=== PATIENT | male | born 1960 | race Caucasian/White ===

== ENCOUNTER 2021-03-06 11:46 | Inpatient (IN) | payer OTHER ==
[2021-03-06] MEDS ORDERED: LABETALOL 5 MG/ML VIAL MDV IVP STA (12:01)
[2021-03-06] MEDS ORDERED: LABETALOL 200 MG in SODIUM CHLORIDE 0.9% 160 ML IV ONE (12:02)
[2021-03-06] MEDS ORDERED: NALOXONE 0.4 MG/ML 1 ML VIAL IV PRN (12:28)
--- NOTE | 2021-03-06 12:28 | ED ---
General Adult HPI - General Chief complaint: Chest Pain Stated complaint: aneurysm Time Seen by Provider: 03/06/21 11:59 Source: patient, EMS Mode of arrival: EMS Limitations: no limitations - History of Present Illness Initial comments: Dictation was produced using [employer] dictation software. please excuse any grammatical, word or spelling errors. Chief Complaint: 60-year-old male sent from [facility] for descending aortic dissection History of Present Illness: 60-year-old male he initially presented to [facility] emergency department for abdominal pain. Patient had CT imaging and labs and was initially discharged. Patient was discharged at approximately 1 AM. He went home and will got a call at 7 AM this morning told to come back to the emergency room. Patient CT was reluctant that and there was suspicion of a small area of acute aortic dissection seen at the level of L3-L4. Patient received some labetalol prior to coming to our emergency room. Patient invited bedside has mild pain however he does appear to be comfortable. Patient states that he drinks alcohol regularly. No nausea vomiting no numbness and paresthesias to the arms or legs. The ROS documented in this emergency department record has been reviewed and confirmed by me. Those systems with pertinent positive or negative responses have been documented in the HPI. All other systems are other negative and/or noncontributory. PHYSICAL EXAM: General Impression: Alert and oriented x3, not in acute distress HEENT: Normocephalic atraumatic, extra-ocular movements intact, pupils equal and reactive to light bilaterally, mucous membranes moist. Cardiovascular: Heart regular rate and rhythm Chest: Able to complete full sentences, no retractions, no tachypnea Abdomen: abdomen soft, non-tender, non-distended, no organomegaly Musculoskeletal: Pulses present and equal in all extremities, no peripheral edema Motor: no focal deficits noted Neurological: CN II-XII grossly intact, no focal motor or sensory deficits noted Skin: Intact with no visualized rashes Psych: Normal affect and mood ED course: 60-year-old well-appearing male presents to the emergency department for acute descending aortic dissection. There is a small area measured 6 mm at the L3 to L4 level. Case was discussed prior to patient's arrival with basilar surgery who was agreeable with patient coming to our emergency room. All signs upon arrival shows blood pressure 150/95, heart rate of 71, rest of vital signs within acceptable limits. Patient started on labetalol infusion. Patient be admitted to ICU. Case discussed with Dr. Fontanez was went except patient's care. Patient be admitted to [facility]. EKG interpretation: Ventricular rate 68, normal sinus rhythm,. 170, QRS 100, QTC 446. No NM prolongation, no QTC prolongation, no ST or T-wave changes noted. Overall, this EKG is unremarkable - Related Data Home Medications Medication Instructions Recorded Confirmed No Known Home Medications 03/06/21 03/06/21 Allergies Allergy/AdvReac Type Severity Reaction Status Date / Time No Known Allergies Allergy Verified 03/06/21 12:24 Review of Systems ROS Statement: Those systems with pertinent positive or pertinent negative responses have been documented in the HPI. ROS Other: All systems not noted in ROS Statement are negative. Past Medical History Past Medical History: No Reported History History of Any Multi-Drug Resistant Organisms: None Reported Past Surgical History: Orthopedic Surgery Past Psychological History: No Psychological Hx Reported Smoking Status: Current every day smoker Past Alcohol Use History: Occasional Past Drug Use History: None Reported General Exam Limitations: no limitations Course Vital Signs 03/06/21 03/06/21 03/06/21 11:50 12:38 12:47 Temperature 98.8 F Pulse Rate 71 78 Respiratory 20 18 16 Rate Blood Pressure 150/95 149/100 137/107 O2 Sat by Pulse 96 97 95 Oximetry Critical Care Time Critical Care Time: Yes Total Critical Care Time: 33 Disposition Clinical Impression: Aortic dissection Disposition: ADMITTED IP TO THIS [facility] Condition: Critical Referrals: None,Stated [Primary Care Provider] - 1-2 days
[2021-03-06] MEDS ORDERED: SODIUM CHLORIDE 0.9% 1,000 ML IV SCH (12:30)
[2021-03-06 14:19] LABS: Basophils # (A) 0.1 k/uL (0-0.2); Basophils % (A) 1 %; Eosinophils # (A) 0.2 k/uL (0-0.7); Eosinophils % (A) 2 %; HCT 38.4 % (39.0-53.0); HGB 13.2 gm/dL (13.0-17.5); Lymphocytes # (A) 3.2 k/uL (1.0-4.8); Lymphocytes % (A) 30 %; MCH 30.3 pg (25.0-35.0); MCHC 34.5 g/dL (31.0-37.0); MCV 87.7 fL (80.0-100.0); Mean Platelet Volume 6.7; Monocytes # (A) 0.5 k/uL (0-1.0); Monocytes % (A) 5 %; Neutrophils # (A) 6.7 k/uL (1.3-7.7); Neutrophils % (A) 62 %; Platelet Count 276 k/uL (150-450); RBC 4.37 m/uL (4.30-5.90); RDW 12.9 % (11.5-15.5); WBC 10.9 k/uL (3.8-10.6)
[2021-03-06 14:31] LABS: ALT 26 U/L (4-49); AST 29 U/L (17-59); African American GFR (CKD) >90 (>60 ml/min/1.73 sqM); Albumin 3.4 g/dL (3.5-5.0); Alkaline Phosphatase 62 U/L (38-126); Amylase 40 U/L (30-110); Anion Gap 8 mmol/L; Blood Urea Nitrogen 15 mg/dL (9-20); Calcium 8.2 mg/dL (8.4-10.2); Carbon Dioxide 29 mmol/L (22-30); Chloride 102 mmol/L (98-107); Glucose 126 mg/dL (74-99); Lipase 83 U/L (23-300); Non-African American GFR(CKD) >90 (>60 ml/min/1.73 sqM); Potassium 3.2 mmol/L (3.5-5.1); Sodium 139 mmol/L (137-145); Total Bilirubin 1.2 mg/dL (0.2-1.3); Total Protein 5.9 g/dL (6.3-8.2)
[2021-03-06 14:35] LABS: INR 1.1 (<1.2); Prothrombin Time 11.3 sec (9.0-12.0)
[2021-03-06] MEDS ORDERED: LORazepam 2 MG/ML INJ IV PRN ×3 (14:46)
[2021-03-06] MEDS ORDERED: THIAMINE 100 MG/ML 2 ML VIAL IM STA (14:46)
--- NOTE | 2021-03-06 14:51 | P.HPIM ---
History of Present Illness H&P Date: 03/06/21 This is a 60-year-old male with no significant past medical history who presented to an outside emergency room with worsening epigastric discomfort, nausea, and vomiting. Patient was evaluated and was found to be in hypertensive urgency. The computed tomography scan of the abdomen and pelvis showed evidence of a aortic dissection at the level of L3-L4. Patient was transferred to our hospital for vascular surgery evaluation. He is hemodynamically stable. Blood pressure was elevated on presentation and patient was started on IV labetalol drip and blood pressure better controlled at this time. Patient is having normal bowel movement. He reported that he drinks 2 fifth of liquor daily. He also smokes one pack of cigarettes per day. Patient denies any underlying medical problems. He did not see a PCP in a long time. He does not take any prescription medications at home. Review of Systems Review of system: 14 points review of systems were obtained and were negative except to what were mentioned in the HPI. Past Medical History Past Medical History: No Reported History History of Any Multi-Drug Resistant Organisms: None Reported Past Surgical History: Orthopedic Surgery Past Psychological History: No Psychological Hx Reported Smoking Status: Current every day smoker Past Alcohol Use History: Occasional Past Drug Use History: None Reported Medications and Allergies Home Medications Medication Instructions Recorded Confirmed Type No Known Home Medications 03/06/21 03/06/21 History Allergies Allergy/AdvReac Type Severity Reaction Status Date / Time No Known Allergies Allergy Verified 03/06/21 12:24 Physical Exam Vitals: Vital Signs Temp Pulse Resp BP Pulse Ox 03/06/21 14:00 73 22 136/89 88 L 03/06/21 13:30 78 28 H 148/90 93 L 03/06/21 13:26 130 H 17 03/06/21 13:01 97.7 F 71 16 133/87 94 L 03/06/21 12:47 16 137/107 95 03/06/21 12:38 78 18 149/100 97 03/06/21 11:50 98.8 F 71 20 150/95 96 Intake and Output 03/05/21 03/06/21 03/06/21 22:59 06:59 14:59 Intake Total 10 Balance 10 Intake: IV 10 0.9 10 Other: Weight 83.915 kg General: The patient is awake and alert, in no distress Eye: there is normal conjunctiva bilaterally. Neck: The neck is supple, there is no JVD. Cardiovascular: Normal S1-S2, no S3-S4, no murmurs. Respiratory: Lungs clear to auscultation bilaterally Gastrointestinal: Abdomen is soft, nontender Musculoskeletal: There is no pedal edema. Neurological:. Speech is normal. Skin: Skin is warm and dry Results CBC & Chem 7: 03/06/21 14:10 03/06/21 14:10 Labs: Abnormal Lab Results - Last 24 Hours (Table) 03/06/21 03/06/21 Range/Units 14:10 14:10 WBC 10.9 H (3.8-10.6) k/uL Hct 38.4 L (39.0-53.0) % Potassium 3.2 L (3.5-5.1) mmol/L Glucose 126 H (74-99) mg/dL Calcium 8.2 L (8.4-10.2) mg/dL Total Protein 5.9 L (6.3-8.2) g/dL Albumin 3.4 L (3.5-5.0) g/dL Assessment and Plan Assessment: 1. Hypertensive urgency, started on IV labetalol drip. Blood pressure improved. Transition to oral medications tomorrow. 2. Questionable descending aortic dissection at L3-L4 levels. Awaiting vascular surgery evaluation 3. History of heavy alcohol abuse, counseled extensively to quit. IV fluid hydration and vitamins ordered. Ativan as needed for withdrawal 4. Tobacco abuse, counseled extensively to quit Today, I reviewed his medication list and lab work results. Continue ICU care. Repeat lab work in the morning. Appreciate business solutions consultant's recommendations.
--- NOTE | 2021-03-06 14:53 | P.GSCN ---
<Inessa Horowitz - Last Filed: 03/06/21 14:46> History of Present Illness Consult date: 03/06/21 Reason for Consult: Abdominal aortic dissection History of present illness: This 60-year-old male who presented to the emergency department as a transfer from an outside facility. He was initially seen at [facility] yesterday evening for abdominal pain and chest discomfort with a possible 5 mm abdominal aortic dissection noted on his computed tomography scan. He has a past medical history significant for hypertension, alcohol abuse, and tobacco abuse. He does not follow with a PCP and is not on any antihypertensives. He states he had abdominal pain all during the day yesterday but it progressively got worse and was associated with nausea and vomiting. He states that he vomited 10-12 times. He denies any hematemesis or coffee-ground emesis. States he was also having loose stools. He denies any black stool or bright red blood. He states he has a heavy drinker he drinks a half a pint to 1 pint a day for the last 45 years. He is also a current smoker approximately one pack per day for the last 40 years. He denies any history of similar pain. He does state that he will vomit frequently when he drinks heavily and states that he was drinking heavily the day before he presented to the emergency department. The patient currently reports no, shortness of breath, chest pain, nausea, vomiting, or fever. He does state he still has abdominal pain greatest in the epigastric region. He denies any previous history of peptic ulcer disease or acid reflux. He denies any previous history of EGD or colonoscopy. CT chest, abdomen and pelvis from [facility] with findings compatible with localized area of dissection at the L3-L4 level, extending a length of approximately 5 mm. Enhancement aorta is seen both proximally and distally. No prior exams available for comparison. With no CT evidence of diverticulitis. Small hiatal hernia also noted. Coronary artery calcification correlate clinically. Subsegmental changes right upper lobe most typical scar or atelectasis correlate clinically to exclude early developing pneumonitis. 2.2 cm left adrenal nodule likely related to incidental adenoma. Labs were unremarkable. Review of Systems A 14 point review of systems was completed and all pertinent positives and negatives as stated in the HPI Past Medical History Past Medical History: No Reported History History of Any Multi-Drug Resistant Organisms: None Reported Past Surgical History: Orthopedic Surgery Past Psychological History: No Psychological Hx Reported Smoking Status: Current every day smoker Past Alcohol Use History: Occasional Past Drug Use History: None Reported Medications and Allergies Home Medications Medication Instructions Recorded Confirmed Type No Known Home Medications 03/06/21 03/06/21 History Allergies Allergy/AdvReac Type Severity Reaction Status Date / Time No Known Allergies Allergy Verified 03/06/21 12:24 Surgical - Exam Vital Signs Temp Pulse Resp BP Pulse Ox 98.8 F 71 20 150/95 96 03/06/21 11:50 03/06/21 11:50 03/06/21 11:50 03/06/21 11:50 03/06/21 11:50 General appearance: The patient is alert, oriented, in no acute distress. HET: Head is normocephalic and atraumatic. Neck: Supple without lymphadenopathy. Trachea midline. Heart: S1 S2. Regular rate and rhythm. Lungs: Clear to auscultation Abdomen: Soft, epigastric tenderness, some mild diffuse tenderness, nondistended with bowel sounds. Extremities: Normal skin color and turgor. No cyanosis, rash, ulceration, clubbing, or edema. Bilateral palpable lower extremity pulses. Bilateral palpable radial pulses. Neurological: No focal deficits. Strength and sensation are grossly intact. Results - Labs 03/06/21 14:10 03/06/21 14:10 Assessment and Plan Assessment: 1. 5 mm Descending aortic dissection per CT 2. Hypertensive 3. Abdominal pain 4. Alcohol abuse 5. Tobacco abuse Plan: 1. Please upload CT chest abdomen and pelvis disc 2. Protonix 40 mg IVP twice a day 3. CBC, comp, amylase, lipase, PT/INR ordered 4. Maintain blood pressure control 5. Continue ICU/medical management 6. Okay for diet from a vascular surgical standpoint 6. Further recommendations to follow Thank you for this consultation and allowing us take part in the plan of care of your patient during his hospital stay. The impression and plan of care has been dictated as directed. Dr. Tucker I performed a history and examination of this patient, discussed the same with the dictator. I agree with the dictator's note ,documented as a scribe. Any additional findings or plans will be noted. <Maci Tucker - Last Filed: 03/06/21 18:32> Surgical - Exam Vital Signs Temp Pulse Resp BP Pulse Ox 98.8 F 71 20 150/95 96 03/06/21 11:50 03/06/21 11:50 03/06/21 11:50 03/06/21 11:50 03/06/21 11:50 Results - Labs 03/06/21 14:10 03/06/21 14:10 Abnormal Lab Results - Last 24 Hours (Table) 03/06/21 03/06/21 Range/Units 14:10 14:10 WBC 10.9 H (3.8-10.6) k/uL Hct 38.4 L (39.0-53.0) % Potassium 3.2 L (3.5-5.1) mmol/L Glucose 126 H (74-99) mg/dL Calcium 8.2 L (8.4-10.2) mg/dL Total Protein 5.9 L (6.3-8.2) g/dL Albumin 3.4 L (3.5-5.0) g/dL Diabetes panel 03/06/21 Range/Units 14:10 Sodium 139 (137-145) mmol/L Potassium 3.2 L (3.5-5.1) mmol/L Chloride 102 (98-107) mmol/L Carbon Dioxide 29 (22-30) mmol/L BUN 15 (9-20) mg/dL Creatinine 0.73 (0.66-1.25) mg/dL Glucose 126 H (74-99) mg/dL Calcium 8.2 L (8.4-10.2) mg/dL AST 29 (17-59) U/L ALT 26 (4-49) U/L Alkaline Phosphatase 62 (38-126) U/L Total Protein 5.9 L (6.3-8.2) g/dL Albumin 3.4 L (3.5-5.0) g/dL Calcium panel 03/06/21 Range/Units 14:10 Calcium 8.2 L (8.4-10.2) mg/dL Albumin 3.4 L (3.5-5.0) g/dL Pituitary panel 03/06/21 Range/Units 14:10 Sodium 139 (137-145) mmol/L Potassium 3.2 L (3.5-5.1) mmol/L Chloride 102 (98-107) mmol/L Carbon Dioxide 29 (22-30) mmol/L BUN 15 (9-20) mg/dL Creatinine 0.73 (0.66-1.25) mg/dL Glucose 126 H (74-99) mg/dL Calcium 8.2 L (8.4-10.2) mg/dL Adrenal panel 03/06/21 Range/Units 14:10 Sodium 139 (137-145) mmol/L Potassium 3.2 L (3.5-5.1) mmol/L Chloride 102 (98-107) mmol/L Carbon Dioxide 29 (22-30) mmol/L BUN 15 (9-20) mg/dL Creatinine 0.73 (0.66-1.25) mg/dL Glucose 126 H (74-99) mg/dL Calcium 8.2 L (8.4-10.2) mg/dL Total Bilirubin 1.2 (0.2-1.3) mg/dL AST 29 (17-59) U/L ALT 26 (4-49) U/L Alkaline Phosphatase 62 (38-126) U/L Total Protein 5.9 L (6.3-8.2) g/dL Albumin 3.4 L (3.5-5.0) g/dL
--- NOTE | 2021-03-06 15:31 | P.CNPUL ---
History of Present Illness Consult date: 03/06/21 Requesting physician: Luis Morales Reason for consult: other Chief complaint: Abdominal pain. History of present illness: Pulmonary/critical care consult dated 03/06/2021. 60-year-old male who doesn't have a primary care physician. The patient has not been to doctor for a long period of time. He does state he has a history of hypertension but does not take any medications at home for. He apparently was initially seen in the [facility] emergency department for abdominal pain. A CT of the abdomen, was initially evaluated, and the patient was discharged. Subsequent evaluation revealed a suspicion of a small area of acute aortic dissection seen at the level of L3-L4. The patient was treated with labetalol, and sent to our emergency department. The patient was accepted here by the hospitalist group, with vascular surgery in consultation. An ICU bed was requested. It was granted. The patient's on room air. The patient's getting saline at 110 mL an hour, and labetalol via drip, at 4 mg an hour. Again the patient does not have a family doctor. Has not been to the doctor a long period of time. He states he has high blood pressure but does not get treatment for. He takes no medications at home. He does smoke cigarettes in a smoke for many years. White count 10.9, hemoglobin 13.2, hematocrit 38.4, and platelet count 276,000. Sodium 139, potassium 3.2, chlorides 102, CO2 29, anion gap 8, BUN 15, and creatinine 0.73. An EKG showed normal sinus rhythm at about 70 bpm. The scan from the other hospital was not available. Review of Systems REVIEW OF SYSTEMS: CONSTITUTIONAL: [Negative.] NEUROLOGIC: [ Negative.] HEENT: [ Negative.] CARDIAC: [Negative.] PULMONARY: [Negative.] GI: Diffuse abdominal pain. : [Negative.] RHEUMATOLOGIC: [ Negative.] IMMUNOLOGIC: [ Negative.] ENDOCRINE: [Negative. ] DERMATOLOGIC: [Negative.] Past Medical History Past Medical History: No Reported History History of Any Multi-Drug Resistant Organisms: None Reported Past Surgical History: Orthopedic Surgery Past Psychological History: No Psychological Hx Reported Smoking Status: Current every day smoker Past Alcohol Use History: Occasional Past Drug Use History: None Reported Medications and Allergies Home Medications Medication Instructions Recorded Confirmed Type No Known Home Medications 03/06/21 03/06/21 History Allergies Allergy/AdvReac Type Severity Reaction Status Date / Time No Known Allergies Allergy Verified 03/06/21 12:24 Physical Exam Osteopathic Statement: *. No significant issues noted on an osteopathic structural exam other than those noted in the History and Physical/Consult. Vitals: Vital Signs Temp Pulse Resp BP Pulse Ox 03/06/21 14:00 73 22 136/89 88 L 03/06/21 13:30 78 28 H 148/90 93 L 03/06/21 13:26 130 H 17 03/06/21 13:01 97.7 F 71 16 133/87 94 L 03/06/21 12:47 16 137/107 95 03/06/21 12:38 78 18 149/100 97 03/06/21 11:50 98.8 F 71 20 150/95 96 Intake and Output 03/06/21 03/06/21 03/06/21 06:59 14:59 22:59 Intake Total 10 Balance 10 Intake: IV 10 0.9 10 Other: Weight 83.915 kg No acute distress, oriented 3. No acute distress, currently on no supplemental oxygen. HEENT examination is grossly unremarkable. Neck supple. Full range of motion. No adenopathy thyromegaly or neck vein distention. Cardiovascular examination reveals regular rhythm rate. S1-S2 normal. No S3 or S4. No discernible murmur noted. Heart sounds are distant. Heart rate 73 bpm. Lungs reveal clear breath sounds. Breath sounds are equal bilaterally. No adventitious lung sounds including wheezes rhonchi or crackles. Room air saturation 94%. Abdomen soft, without masses or tenderness. Bowel sounds are normal. Extremities are intact. No cyanosis clubbing or edema. Skin is without rash or lesion. Neurologic examination is brief but nonfocal. Results - Laboratory Findings CBC and BMP: 03/06/21 14:10 03/06/21 14:10 PT/INR, D-dimer PT 11.3 sec (9.0-12.0) 03/06/21 14:10 INR 1.1 (<1.2) 03/06/21 14:10 Abnormal lab findings: Abnormal Labs 03/06/21 03/06/21 14:10 14:10 WBC 10.9 H Hct 38.4 L Potassium 3.2 L Glucose 126 H Calcium 8.2 L Total Protein 5.9 L Albumin 3.4 L Assessment and Plan Assessment: Possible acute aortic dissection, at the L3/L4 level, causing the patient abdominal pain. History of hypertension, currently not taking any medications. History of chronic tobacco use with nicotine addiction. Plan: Plan dated 03/06/2021. Currently, the patient is stable in the intensive care unit. The patient not requiring any supplemental oxygen. Continue to monitor blood pressure closely. The patient is currently on labetalol drip at 4 mg an hour. Vascular surgery has yet to see the patient. They will eventually see this patient. Additional recommendations and suggestions are forthcoming. Prognosis is guarded. The patient's counseled about the importance of smoking cessation. Time with Patient: Greater than 30
[2021-03-06] MEDS: LABETALOL 200 MG in SODIUM CHLORIDE 0.9% 160 ML IV SCH ×5 (17:36→22:09)
[2021-03-06] MEDS: DEXTROSE 5%-0.45% NACL 1,000 ML IV SCH (18:06)
[2021-03-06] MEDS: PANTOPRAZOLE 40 MG/10 ML VIAL IVP SCH (20:45)
[2021-03-06] MEDS: THIAMINE 100 MG TAB PO SCH (20:45)
[2021-03-06] MEDS: POTASSIUM CHLORIDE 10 MEQ in WATER FOR INJECTION 1 100ML.BAG IVPB SCH ×2 (20:46→23:03)
[2021-03-07] MEDS: POTASSIUM CHLORIDE 10 MEQ in WATER FOR INJECTION 1 100ML.BAG IVPB SCH ×2 (00:20→01:31)
[2021-03-07] MEDS: LABETALOL 200 MG in SODIUM CHLORIDE 0.9% 160 ML IV SCH ×6 (01:32→09:49)
[2021-03-07 05:43] LABS: Basophils % (A) 1 %; Eosinophils # (A) 0.3 k/uL (0-0.7); Eosinophils % (A) 4 %; HCT 35.7 % (39.0-53.0); HGB 12.2 gm/dL (13.0-17.5); Lymphocytes # (A) 2.4 k/uL (1.0-4.8); Lymphocytes % (A) 31 %; MCH 30.4 pg (25.0-35.0); MCHC 34.3 g/dL (31.0-37.0); MCV 88.7 fL (80.0-100.0); Mean Platelet Volume 6.9; Monocytes # (A) 0.4 k/uL (0-1.0); Monocytes % (A) 5 %; Neutrophils # (A) 4.7 k/uL (1.3-7.7); Neutrophils % (A) 59 %; Platelet Count 234 k/uL (150-450); RBC 4.02 m/uL (4.30-5.90); RDW 12.9 % (11.5-15.5)
[2021-03-07 06:04] LABS: African American GFR (CKD) >90 (>60 ml/min/1.73 sqM); Anion Gap 6 mmol/L; Blood Urea Nitrogen 15 mg/dL (9-20); Calcium 8.1 mg/dL (8.4-10.2); Carbon Dioxide 27 mmol/L (22-30); Chloride 102 mmol/L (98-107); Glucose 99 mg/dL (74-99); Non-African American GFR(CKD) >90 (>60 ml/min/1.73 sqM); Potassium 4.1 mmol/L (3.5-5.1); Sodium 135 mmol/L (137-145)
[2021-03-07] MEDS: THIAMINE 100 MG TAB PO SCH (06:39)
[2021-03-07] MEDS ORDERED: MULTIVITAMINS, THERA 1 EACH TAB PO SCH (09:00)
[2021-03-07] MEDS ORDERED: amLODIPine 10 MG TAB PO SCH (09:00)
[2021-03-07] MEDS: DEXTROSE 5%-0.45% NACL 1,000 ML IV SCH (09:57)
[2021-03-07] MEDS: PANTOPRAZOLE 40 MG/10 ML VIAL IVP SCH (09:57)
[2021-03-07] MEDS ORDERED: NICOTINE 21MG/24HR PATCH TRANSDERM SCH (10:15)
--- NOTE | 2021-03-07 13:18 | P.PN ---
Subjective Progress Note Date: 03/07/21 Principal diagnosis: Abdominal pain. Pulmonary/critical care consult dated 03/06/2021. 60-year-old male who doesn't have a primary care physician. The patient has not been to doctor for a long period of time. He does state he has a history of hypertension but does not take any medications at home for. He apparently was initially seen in the [facility] emergency department for abdominal pain. A CT of the abdomen, was initially evaluated, and the patient was discharged. Subsequent evaluation revealed a suspicion of a small area of acute aortic dissection seen at the level of L3-L4. The patient was treated with labetalol, and sent to our emergency department. The patient was accepted here by the hospitalist group, with vascular surgery in consultation. An ICU bed was requested. It was granted. The patient's on room air. The patient's getting saline at 110 mL an hour, and labetalol via drip, at 4 mg an hour. Again the patient does not have a family doctor. Has not been to the doctor a long period of time. He states he has high blood pressure but does not get treatment for. He takes no medications at home. He does smoke cigarettes in a smoke for many years. White count 10.9, hemoglobin 13.2, hematocrit 38.4, and platelet count 276,000. Sodium 139, potassium 3.2, chlorides 102, CO2 29, anion gap 8, BUN 15, and creatinine 0.73. An EKG showed normal sinus rhythm at about 70 bpm. The scan from the other hospital was not available. Progress note dated 03/07/2021. This is a 60-year-old male who was transferred down from an outside hospital, because of concerns of a dissection of his abdominal aorta. I spoke to Dr. Tucker yesterday, who stated to me that she was not concerned about this abnormality that was seen on the CAT scan. The patient has subsequently been taken off of the IV labetalol. He is currently on room air. He is getting D5.45 at 50 mL an hour. The patient was placed on amlodipine 10 mg a day. The patient could be transferred out to the general medical floor without telemetry, or even discharged home. We will leave that up to the primary care provider. White count 8, hemoglobin 12.2, hematocrit 35.7, and platelet count 234,000. Sodium 135, potassium 4.1, chlorides 102, CO2 27, anion gap 6, BUN 15, cr eatinine 0.85. Objective - Vital Signs Vital signs: Vital Signs Temp 97.7 F 03/07/21 08:00 Pulse 71 03/07/21 10:00 Resp 10 L 03/07/21 10:00 BP 148/104 03/07/21 10:00 Pulse Ox 96 03/07/21 10:00 Intake & Output 03/06/21 03/07/21 03/07/21 18:59 06:59 18:59 Intake Total 50 960 50 Output Total 500 Balance 50 460 50 Weight 83.915 kg 83.1 kg Intake: IV 50 10 0.9 50 10 Intake, IV Titration 950 50 Amount Dextrose 5%-0.45% NaCl 1, 550 50 000 ml @ 50 mls/hr IV . Q20H OCTAVIA Rx#:[id number] Potassium Chloride 10 meq 400 In Water For Injection 1 100ml.bag @ 100 mls/hr IVPB Q1HR OCTAVIA Rx#: [id number] Output: Urine 500 Other: Voiding Method Urinal # Voids 1 - Exam No acute distress, oriented 3. No acute distress, currently on no supplemental oxygen. HEENT examination is grossly unremarkable. Neck supple. Full range of motion. No adenopathy thyromegaly or neck vein distention. Cardiovascular examination reveals regular rhythm rate. S1-S2 normal. No S3 or S4. No discernible murmur noted. Heart sounds are distant. Heart rate 71 bpm. Lungs reveal clear breath sounds. Breath sounds are equal bilaterally. No adventitious lung sounds including wheezes rhonchi or crackles. Room air saturation 96%. Abdomen soft, without masses or tenderness. Bowel sounds are normal. Extremities are intact. No cyanosis clubbing or edema. Skin is without rash or lesion. Neurologic examination is brief but nonfocal. - Labs CBC & Chem 7: 03/07/21 05:02 03/07/21 05:02 Labs: Abnormal Lab Results - Last 24 Hours (Table) 03/06/21 03/06/21 03/07/21 Range/Units 14:10 14:10 05:02 WBC 10.9 H (3.8-10.6) k/uL RBC 4.02 L (4.30-5.90) m/uL Hgb 12.2 L (13.0-17.5) gm/dL Hct 38.4 L 35.7 L (39.0-53.0) % Sodium (137-145) mmol/L Potassium 3.2 L (3.5-5.1) mmol/L Glucose 126 H (74-99) mg/dL Calcium 8.2 L (8.4-10.2) mg/dL Total Protein 5.9 L (6.3-8.2) g/dL Albumin 3.4 L (3.5-5.0) g/dL 03/07/21 Range/Units 05:02 WBC (3.8-10.6) k/uL RBC (4.30-5.90) m/uL Hgb (13.0-17.5) gm/dL Hct (39.0-53.0) % Sodium 135 L (137-145) mmol/L Potassium (3.5-5.1) mmol/L Glucose (74-99) mg/dL Calcium 8.1 L (8.4-10.2) mg/dL Total Protein (6.3-8.2) g/dL Albumin (3.5-5.0) g/dL Assessment and Plan Assessment: Possible acute aortic dissection, at the L3/L4 level, causing the patient abdominal pain, not thought to be clinically or radiographically significant, according to vascular surgery. History of hypertension, currently not taking any medications. History of chronic tobacco use with nicotine addiction. Plan: Plan dated 03/06/2021. Currently, the patient is stable in the intensive care unit. The patient not requiring any supplemental oxygen. Continue to monitor blood pressure closely. The patient is currently on labetalol drip at 4 mg an hour. Vascular surgery has yet to see the patient. They will eventually see this patient. Additional recommendations and suggestions are forthcoming. Prognosis is guarded. The p atient's counseled about the importance of smoking cessation. Plan dated 03/07/2021. The patient is no longer on IV beta francoise. The patient is not requiring any supplemental oxygen. The patient was placed on amlodipine 10 mg a day for blood pressure control. His IV can be discontinued. The patient could be transferred out to the general medical floor without telemetry, or possibly even discharged home. He is counseled about the importance of smoking cessation. He is encouraged to find a family doctor, and see the family doctor on a regular basis. Time with Patient: Greater than 30
--- NOTE | 2021-03-07 14:19 | P.DS ---
Providers Date of admission: 03/06/21 12:28 Expected date of discharge: 03/07/21 Attending physician: Luis Morlaes Consults: 03/06/21 12:02 Consult Physician Urgent Consulting Provider: Christiano Gr Consult Reason/Comments: descending aortic dissection Do you want consulting provider notified?: Already Contacted 03/06/21 12:28 Consult Physician Stat Consulting Provider: Guru Suarez Consult Reason/Comments: icu patient Do you want consulting provider notified?: Already Contacted Primary care physician: Stated None Hospital Course: This is a 60-year-old male with past medical history significant for tobacco abuse and alcohol abuse that presented to an outside emergency room with abdominal pain. Patient was evaluated and he was found to be in hypertensive urgency. Computed tomography scan of the abdomen and pelvis showed questionable descending aortic dissection at the level of L3/L4. Patient was transferred to our hospital for vascular surgery evaluation. He was admitted to the ICU and started on IV labetalol drip. His blood pressure improved significantly and labetalol drip was discontinued. Patient was transitioned to oral Norvasc 10 mg daily. Pressure remained within acceptable range. 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 No further workup recommended at this time. Patient was cleared for discharge home. He was counseled extensively regarding tobacco cessation and to stop drinking alcohol. He was referred to a primary care physician for follow-up. General: The patient is awake and alert, in no distress Eye: there is normal conjunctiva bilaterally. Neck: The neck is supple, there is no JVD. Cardiovascular: Normal S1-S2, no S3-S4, no murmurs. Respiratory: Lungs clear to auscultation bilaterally Gastrointestinal: Abdomen is soft, nontender Musculoskeletal: There is no pedal edema. Neurological:. Speech is normal. Skin: Skin is warm and dry Patient Condition at Discharge: Critical Plan - Discharge Summary New Discharge Prescriptions: New Nicotine 21Mg/24Hr Patch [Habitrol] 1 patch TRANSDERM DAILY #30 patch amLODIPine [Norvasc] 10 mg PO DAILY #30 tab Discharge Medication List Nicotine 21Mg/24Hr Patch [Habitrol] 1 patch TRANSDERM DAILY #30 patch 03/07/21 [Rx] amLODIPine [Norvasc] 10 mg PO DAILY #30 tab 03/07/21 [Rx] Follow up Appointment(s)/Referral(s): None,Stated [Primary Care Provider] - 1-2 days Eran Tate [STAFF PHYSICIAN] - 1 Week Discharge Disposition: HOME SELF-CARE
[2021-03-07 15:32] VITALS: BP 142/89; PULSE 65; RESP 16; TEMP 98.2
== END 2021-03-07 15:30 | disposition home or self-care (01) | DRG 300 ==
LOC: EC 11:46 → 2SICU 12:28
PROVIDERS: ADMIT Internal Medicine; ATTEND Internal Medicine
DX: I71.02 Dissection of abdominal aorta (principal); J98.11 Atelectasis; I10 Essential (primary) hypertension; F17.210 Nicotine dependence, cigarettes, uncomplicated; F10.10 Alcohol abuse, uncomplicated; I16.0 Hypertensive urgency; E27.8 Other specified disorders of adrenal gland; I25.10 Atherosclerotic heart disease of native coronary artery without angina pectoris; K44.9 Diaphragmatic hernia without obstruction or gangrene; Z79.899 Other long term (current) drug therapy
CPT/HCPCS: 80048; 80053; 82150; 83690; 85025; 85610; 93005; 96374; 99285

== ENCOUNTER 2021-08-26 16:51 | Observation (INO) | payer OTHER ==
[2021-08-26] MEDS ORDERED: MORPHINE SULFATE 4 MG/ML SYRINGE IVP STA (17:00)
--- NOTE | 2021-08-26 17:03 | ED ---
General Adult HPI - General Stated complaint: chest pain Time Seen by Provider: 08/26/21 16:54 Source: patient, RN notes reviewed, old records reviewed (From [facility]) Mode of arrival: EMS Limitations: no limitations - History of Present Illness Initial comments: Patient is a pleasant 59-year-old male presenting to the emergency Department with chest discomfort. Onset of symptoms was 3 days ago. Chest discomfort feels like pressure or sharp. Discomfort is sternal. No radiation. Minimal shortness of breath. No nausea or diaphoresis. Patient does have previous cardiac history. Patient also has history of aortic and results and how her is unclear where this is at. Symptoms are moderate to severe at this time. Symptoms are not necessarily exertional. - Related Data Previous Rx's Medication Instructions Recorded Nicotine 21Mg/24Hr Patch [Habitrol] 1 patch TRANSDERM DAILY #30 patch 03/07/21 amLODIPine [Norvasc] 10 mg PO DAILY #30 tab 03/07/21 Allergies Allergy/AdvReac Type Severity Reaction Status Date / Time No Known Allergies Allergy Verified 03/06/21 12:24 Review of Systems ROS Statement: Those systems with pertinent positive or pertinent negative responses have been documented in the HPI. ROS Other: All systems not noted in ROS Statement are negative. Constitutional: Denies: fever Eyes: Denies: eye pain ENT: Denies: ear pain Respiratory: Reports: as per HPI Cardiovascular: Reports: as per HPI, chest pain Endocrine: Denies: fatigue Gastrointestinal: Denies: abdominal pain Genitourinary: Denies: dysuria Musculoskeletal: Denies: back pain Skin: Denies: rash Neurological: Denies: weakness Past Medical History Past Medical History: No Reported History History of Any Multi-Drug Resistant Organisms: None Reported Past Surgical History: Orthopedic Surgery Past Psychological History: No Psychological Hx Reported Smoking Status: Current every day smoker Past Alcohol Use History: Occasional Past Drug Use History: None Reported General Exam Limitations: no limitations General appearance: alert, in no apparent distress Head exam: Present: normocephalic Eye exam: Present: normal appearance Neck exam: Present: normal inspection Respiratory exam: Present: normal lung sounds bilaterally. Absent: chest wall tenderness Cardiovascular Exam: Present: regular rate, normal rhythm Expanded Peripheral pulses: 2+: Radial (R), Radial (L), Posterior Tibialis (R), Posterior Tibialis (L) GI/Abdominal exam: Present: soft. Absent: tenderness, pulsatile mass Extremities exam: Present: normal inspection. Absent: pedal edema, calf tenderness Neurological exam: Present: alert Psychiatric exam: Present: normal affect, normal mood Skin exam: Present: other (Tobacco stained fingers) Course Vital Signs 08/26/21 17:00 Temperature 98.3 F Pulse Rate 73 Respiratory 18 Rate Blood Pressure 158/97 O2 Sat by Pulse 92 L Oximetry EKG Findings - EKG Comments: EKG Findings:: Sinus rhythm rate 95. MA 166. QRS 96. QT 353. QTC 5. Left axis. Normal QRS. No acute ST change. Medical Decision Making - Medical Decision Making Patient reevaluated and updated. Case discussed with Dr. Mcclure, who will admit for hospital observation. - Lab Data Lab Results 08/26/21 Range/Units 17:29 Troponin I <0.012 (0.000-0.034) ng/mL - Radiology Data Radiology results: report reviewed (CT angios shows no aneurysm or dissection. Plaque left iliac artery. No pulmonary embolism. Distended gallbladder.) Disposition Clinical Impression: Chest pain Disposition: ADMITTED IP TO THIS HOSP Is patient prescribed a controlled substance at d/c from ED?: No Referrals: Samir Angulo MD [Primary Care Provider] - 1-2 days Decision Time: 18:18
--- NOTE | 2021-08-26 17:53 | CT ---
EXAMINATION TYPE: CT angio thor/abd pel aorta DATE OF EXAM: 08/26/2021 COMPARISON: 03/05/2021 HISTORY: chest pain, hx of AAA CT DLP: 1257.6 mGycm Automated exposure control for dose reduction was used. CONTRAST: Performed without and with IV Contrast, patient injected with 100 mL of Isovue 370. Images obtained from the thoracic inlet to the diaphragm without contrast. Images obtained from the t horacic inlet to the floor the pelvis with IV contrast. There are Three-D postprocessed images. There is some mild subsegmental atelectasis at the posterior lung bases. No pleural effusion. Heart s ize is normal. There is no pericardial effusion. There is no evidence of filling defect in the pulmon raymundo arteries. There are no hilar masses. There is no mediastinal adenopathy. Thoracic aorta is intact . No aneurysm or dissection. The ascending aorta measures 3.7 cm. Liver spleen and stomach pancreas gallbladder appear intact. The bile ducts are not dilated. Gallblad yassine distended up to 4.2 cm. There is 2 cm low-density left adrenal mass suggestive of benign disease. Kidneys show satisfactory c ontrast opacification. There is no hydronephrosis. Abdominal aorta is atheromatous. There is no retro peritoneal adenopathy. Appendix is posterior and appears normal. Bladder distends smoothly. There is no inguinal hernia. There is no free fluid in the pelvis. No pelvic mass. There are multiple sigmoid diverticula. No diverticulitis. There is no mesenteric edema. There is no ascites or free air. There is no bowel obstruction. There is mild atheromatous change in the abdominal aorta. There is arterial flow in the celiac artery and superior mesenteric artery. There is arterial flow in the renal and iliac and femoral arteries. No evidence of hemodynamic stenosis. No aneurysm or dissection. Moderate plaque formation in the left iliac artery. Lumen narrowing up to 50%. IMPRESSION: There is some atherosclerotic vascular disease. No evidence of arterial aneurysm or dissection. Irreg ular plaque in the left iliac artery with luminal narrowing approximately 50%. No evidence of pulmonary embolism. Distended gallbladder could relate to some degree of gallbladder dysfunction and not significantly di fferent than old exam. Colonic diverticulosis without diverticulitis.
[2021-08-26] MEDS ORDERED: NITROGLYCERIN SL TABS 0.4 MG TAB SUBLINGUAL PRN (18:22)
[2021-08-26] MEDS ORDERED: ASPIRIN 81 MG PO STA (18:22)
[2021-08-26] MEDS: NITROGLYCERIN OINT 1 INCH/GM PACKET TOPICAL SCH (19:39)
[2021-08-27] MEDS ORDERED: LORazepam 2 MG/ML INJ IV PRN ×3 (00:09)
--- NOTE | 2021-08-27 00:11 | P.HPIM ---
History of Present Illness H&P Date: 08/26/21 The patient is a 61-year-old male with a PMH of hypertension, alcohol abuse, and recently diagnosed descending aortic dissection who presented to the emergency room with complaints of chest discomfort. Patient reports that his symptoms started roughly 3 days ago, with substernal throbbing like chest discomfort, constant, 8 out of 10 intensity, with no alleviating or exacerbating features, nonradiating, nonpleuritic. He reports no association with exertion. He further reports drinking a fifth of gin daily for the past several years as well as smoking one pack of cigarettes daily. Reports that his last drink was this morning. He denied expressing shortness of breath, nausea, vomiting, seymour phoresis, dizziness, palpitations. Also denied fever, chills, cough, abdominal pain, diarrhea. Reports at the time of interview his pain has improved to a [address] angiogram of the aorta revealed atherosclerotic vascular disease with an irregular plaque in the left iliac artery with narrowing approximately 50%, as well as diverticulosis without diverticulitis. EKG reveals sinus rhythm at 95 bpm with left axis deviation with no additional ST/T-wave changes noted as reviewed by me. Laboratory evaluation was remarkable for hemoglobin of 12.2, and troponin of less than 0.012. Review of systems: Pertinent positives and negatives as discussed in HPI, a complete review of systems was performed and all other systems are negative. Physical examination: General: non toxic, no distress, appears at stated age, normal weight Derm: no unusual rashes/lesions no unusual ecchymoses, warm, dry Head: atraumatic, normocephalic, symmetric Eyes: EOMI, no lid lag, anicteric sclera, pupils equal round reactive to light ENT: Nose and ears atraumatic, no thrush, no pharyngeal erythema Neck: No thyromegaly, no cervical lymphadenopathy, trachea midline, supple Mouth: no lip lesion, mucus membranes moist Cardiovascular: S1S2 reg, no murmur, positive posterior tibial pulse bilateral, no edema, capillary refill less than 2 seconds Lungs: CTA bilateral, no rhonchi, no rales , no accessory muscle use Abdominal: soft, nontender to palpation, no guarding, no appreciable organomegaly, normal bowel sounds Ext: no gross muscle atrophy, muscle strength 5 out of 5 in all 4 extremities grossly, no contractures, Neuro: CN II-XI grossly intact, light touch intact all 4 extremities, finger to nose within normal limits, Psych: Alert, oriented, appropriate affect Assessment/plan Chest pain, rule out ACS -Cardiac monitoring -Cardiology consult -Continue with aspirin -Trend troponin Alcohol abuse, impending withdrawal -[facility] protocol -Thiamine -Monitor electrolytes -IV fluids Chronic conditions: Hypertension, aortic dissection/aneurysm -Dissection seems to have improved as per CTA -Continue with remaining home medications DVT prophylaxis -Heparin The patient is admitted with an anticipated less than 2 midnight stay for evaluation of chest pain CODE STATUS: Full Code Discussed with: Patient Anticipated discharge date: in am Anticipated discharge place: Home Past Medical History Past Medical History: No Reported History History of Any Multi-Drug Resistant Organisms: None Reported Past Surgical History: Orthopedic Surgery Past Anesthesia/Blood Transfusion Reactions: No Reported Reaction Past Psychological History: No Psychological Hx Reported Smoking Status: Current every day smoker Past Alcohol Use History: Abuse, Daily, Heavy Additional Past Alcohol Use History / Comment(s): ETOH abuse for last 35-40 years, pt states he stopped drinking 6 months ago and started back uo three days ago.. pt states he drinks anywhere from 2x 6 packs of beer to x2 fiths depending on his mood. Recently he states hes been drinking 1 fith per day. Past Drug Use History: None Reported Medications and Allergies Home Medications Medication Instructions Recorded Confirmed Type amLODIPine [Norvasc] 5 mg PO DAILY 08/26/21 08/26/21 History Allergies Allergy/AdvReac Type Severity Reaction Status Date / Time No Known Allergies Allergy Verified 08/26/21 18:39 Physical Exam Vitals: Vital Signs Temp Pulse Pulse Resp BP BP Pulse Ox 08/26/21 20:49 97.6 F 90 20 172/93 93 L 08/26/21 19:40 98 18 148/98 98 08/26/21 17:00 98.3 F 73 18 158/97 92 L Intake and Output 08/26/21 08/26/21 08/27/21 14:59 22:59 06:59 Other: # Voids 2 Weight 86.183 kg Thrombosis Risk Factor Assmnt - Choose All That Apply Any of the Below Risk Factors Present?: Yes Each Factor Represents 1 point: Obesity (BMI >25) Other Risk Factors: Yes Each Risk Factor Represents 2 Points: Age 61-74 years Other congenital or acquired thrombophilia - If yes, enter type in comment: No Thrombosis Risk Factor Assessment Total Risk Factor Score: 3 Thrombosis Risk Factor Assessment Level: Moderate Risk
[2021-08-27] MEDS ORDERED: THIAMINE 100 MG/ML 2 ML VIAL IM ONE (00:15)
[2021-08-27] MEDS ORDERED: SODIUM CHLORIDE 0.9% 1,000 ML IV SCH (00:15)
[2021-08-27] MEDS: NITROGLYCERIN OINT 1 INCH/GM PACKET TOPICAL SCH ×3 (01:12→15:53)
[2021-08-27] MEDS ORDERED: HEPARIN SODIUM,PORCINE/PF 5,000 UNIT/0.5 ML SYRINGE SQ SCH (08:00)
[2021-08-27] MEDS ORDERED: amLODIPine 5 MG TAB PO STA (08:36)
[2021-08-27] MEDS ORDERED: amLODIPine 5 MG TAB PO SCH (09:00)
[2021-08-27] MEDS ORDERED: MULTIVITAMINS, THERA 1 EACH TAB PO SCH (09:00)
[2021-08-27] MEDS ORDERED: ASPIRIN 325 MG TAB PO SCH (09:00)
[2021-08-27 09:09] LABS: BUN/Creat Ratio 14.25 Ratio (12.00-20.00); Blood Urea Nitrogen 11.4 mg/dL (9.0-27.0); Calcium 9.2 mg/dL (8.7-10.3); Carbon Dioxide 25.4 mmol/L (20.0-27.5); Chloride 100 mmol/L (96-109); Chol/HDL Ratio 2.56 Ratio; Glucose 101 mg/dL (70-110); LDL Cholesterol,Calculated 97.4 mg/dL (0.0-131.0); Non-African American GFR(CKD) 95.7 (60.0-200.0); Potassium 4.2 mmol/L (3.5-5.5); Sodium 137 mmol/L (135-145); VLDL Calculation 12.96 mg/dL (5.00-40.00)
--- NOTE | 2021-08-27 14:49 | P.DS ---
Providers Date of admission: 08/26/21 18:23 Expected date of discharge: 08/27/21 Attending physician: Humza Montalvo MD Consults: 08/26/21 18:22 Consult Physician Urgent Consulting Provider: Ye Barrientos Consult Reason/Comments: cp Do you want consulting provider notified?: Yes Primary care physician: Samir Angulo Hospital Course: Discharge Diagnosis: Atypical chest pain, acute coronary syndrome ruled out Hypertension Alcohol abuse Descending aortic aneurysm Nicotine dependence Hospital Course: Patient is a very pleasant 61-year-old male with a past medical history of hypertension, alcohol abuse drinking one fifth of gin daily, nicotine dependence smoking one pack of cigarettes daily, and descending aortic aneurysm. He presented to the emergency department on 08/26/21 with a chief complaint of chest pain. Patient reported these symptoms began approximately 3 days ago and described them as a substernal throbbing-like discomfort. Patient denied any associated symptoms and denied any radiation of this pain. In the emergency department patient underwent full evaluation. An EKG was completed revealing sinus rhythm and 95 bpm with no noted T wave or ST abnormality showing no signs of acute ischemia. Labs reviewed and unremarkable. Troponin negative. Patient was admitted under our services with consultation to cardiology. Patient underwent a CTA of his thoracic abdominal pelvic aorta which revealed some atherosclerotic vascular disease with no evidence of arterial aneurysm or dissection, irregular plaque in the left iliac artery revealing luminal narrowing of approximately 50%, no evidence of PE, and distended gallbladder similar to previous exam. Cardiology evaluating patient and an echocardiogram was completed. Dr. Chaves reports echocardiogram reviewed revealing an EF of 55-60% with no significant abnormalities. Cardiology recommending following up outpatient. Patient is medically stable for discharge at this time. Vital signs unremarkable with Blood pressure 131/84, heart rate 95, respiratory rate 16. Patient's amlodipine was increased from 5 mg daily up to 10 mg daily. Patient strongly encourage inpatient drug and alcohol rehabilitation program however he declined at this time. Patient again strongly encouraged about the importance of alcohol cessation and risks of continued use. He was provided with outpatient community resources. Patient medically stable for discharge at this time. Patient to follow-up with PCP in 1-2 days and cardiology in 1 week. Physical exam: General: non toxic, no distress, appears at stated age Derm: warm, dry Head: atraumatic, normocephalic, symmetric Eyes: EOMI, no lid lag, anicteric sclera Mouth: no lip lesion, mucus membranes moist Cardiovascular: S1S2 reg, no murmur, positive posterior tibial pulse bilateral, Lungs: CTA bilateral, no rhonchi, no rales , no accessory muscle use Abdominal: soft, nontender to palpation, no guarding, no appreciable organomegaly Ext: no gross muscle atrophy, no edema, no contractures Neuro: CN II-XI grossly intact, no focal neuro deficits Psych: Alert, oriented, appropriate affect A total of 42 minutes of time were spent preparing this complex discharge summary. Burt Taylor NP rendered care for this patient independently, reviewed the findings and plan as documented in the note above. I did not physically speak with or examine the patient on this date. Possible Gallbladder dysfunction represented bygallbladder distension will send message to Dr. Angulo recommend outpatient evaluation for GERD and cholecystitis. Patient Condition at Discharge: Stable Plan - Discharge Summary Discharge Rx Participant: Yes New Discharge Prescriptions: New amLODIPine [Norvasc] 10 mg PO DAILY 30 Days #30 tab Thiamine [Vitamin B-1] 100 mg PO BID-W/MEALS 30 Days #60 tab Multivitamins, Thera [Multivitamin (formulary)] 1 each PO DAILY 30 Days #30 tab Discontinued amLODIPine [Norvasc] 5 mg PO DAILY Discharge Medication List Multivitamins, Thera [Multivitamin (formulary)] 1 each PO DAILY 30 Days #30 tab 08/27/21 [Rx] Thiamine [Vitamin B-1] 100 mg PO BID-W/MEALS 30 Days #60 tab 08/27/21 [Rx] amLODIPine [Norvasc] 10 mg PO DAILY 30 Days #30 tab 08/27/21 [Rx] Follow up Appointment(s)/Referral(s): Samir Angulo MD [Primary Care Provider] - 1-2 days Jimmie Chaves MD [STAFF PHYSICIAN] - 1 Week Activity/Diet/Wound Care/Special Instructions: Activity: As tolerated. Take breaks as needed. Diet: Heart healthy and carb consistent diet. Avoid salts, or foods with hidden salts such as canned or boxed foods and frozen dinners. Extra salt makes your heart work harder and traps the fluid in your body for longer. Special Instructions: Take all of your medications as directed and remember to keep all of your doctor's appointments and follow-up as needed. Strongly encourage cessation of all alcohol use. Access Line can be reached for information for more local [phone]. Strongly recommend you reconsidering the possibility of an inpatient drug and alcohol rehabilitation facility. We also recommend stopping smoking. Thank you for allowing us to participate in your care, it was truly a pleasure having you for our patient!!! Discharge/Stand Alone Forms: [facility] Discharge Disposition: HOME SELF-CARE
[2021-08-27 15:10] VITALS: BP 143/93; PULSE 106; RESP 18; TEMP 97.8
--- NOTE | 2021-08-27 16:31 | ECHOF ---
Referral Reason:cp/ elevated bp MEASUREMENTS -------- HEIGHT: 172.7 cm WEIGHT: 86.2 kg BP: 166/93 RVIDd: 3.5 cm (< 3.3) IVSd: 1.5 cm (0.6 - 1.1) LVIDd: 4.2 cm (3.9 - 5.3) LVPWd: 1.8 cm (0.6 - 1.1) IVSs: 2.1 cm LVIDs: 2.3 cm LVPWs: 1.9 cm LAESV Index (A-L): 30.02 ml/m Ao Diam: 3.3 cm (2.0 - 3.7) AV Cusp: 1.9 cm (1.5 - 2.6) LA Diam: 3.2 cm (2.7 - 3.8) MV EXCURSION: 16.721 mm (> 18.000) MV EF SLOPE: 63 mm/s (70 - 150) EPSS: 0.4 cm MV E Carlos: 0.68 m/s MV DecT: 213 ms MV A Carlos: 0.98 m/s MV E/A Ratio: 0.69 RAP: 5.00 mmHg RVSP: 23.28 mmHg FINDINGS -------- Sinus rhythm. This was a technically difficult study with suboptimal apical views. The left ventricular size is normal. There is moderate concentric left ventricular hypertrophy. O verall left ventricular systolic function is normal with, an EF between 55 - 60 %. The right ventricle is moderately enlarged. LA is midly dilated 29-33ml/m2. The right atrial size is normal. 5.0mg of Lumason was utilized for enhancement of images Interatrial and interventricular septum intact. There is no evidence of aortic regurgitation. There is no evidence of aortic stenosis. Mild mitral regurgitation is present. Mild tricuspid regurgitation present. There is no evidence of pulmonary hypertension. The right v entricular systolic pressure, as measured by Doppler, is 23.28mmHg. There is no pulmonic regurgitation present. The aortic root size is normal. IVC Not well visulized. There is no pericardial effusion. CONCLUSIONS -------- 1. The left ventricular size is normal. 2. There is moderate concentric left ventricular hypertrophy. 3. Overall left ventricular systolic function is normal with, an EF between 55 - 60 %. 4. The right ventricle is moderately enlarged. 5. LA is midly dilated 29-33ml/m2. 6. Mild mitral regurgitation is present. 7. Mild tricuspid regurgitation present. STRAWHAT SIZER: Earlene Coyne RDCS
[2021-08-27] MEDS ORDERED: THIAMINE 100 MG TAB PO SCH (17:30)
--- NOTE | 2021-08-27 18:22 | P.CRDCN ---
History of Present Illness History of present illness: This is Dr. Chaves dictating a consult on Christiano Yanez The patient was interviewed and examined IMPRESSION / ASSESSMENT: Uncontrolled hypertension No evidence for aortic dissection Difference in bilateral arm blood pressure PLAN: Amlodipine 10 mg daily Atorvastatin 20 mg daily Baby aspirin, reduced to 81 mg daily line lipid panel Hemoglobin A1c 2-D echo HPI- [id number] male patient presenting with chest discomfort starting 3 days back Substernal no radiation no shortness of breath no associated symptoms nonexertional Elevated blood pressure readings 172/93 169/96 and 166/93 History of smoking History of hypertension on amlodipine Admission blood pressure 158/97 mmHg ROS: No fever chills or rigors, no cough, phlegm or expectoration, no nausea, vomiting or diarrhea, no hematuria, dysuria, no musculoskeletal complaints, no strokes or seizures, no skin lesions. EXAMINATION: Elevated blood pressure readings Normal heart rates 's sitting comfortably in a chair Lungs are clear no rhonchi no crackles Normal heart sounds normal S1 normal S2 11 abdomen soft Extremities are warm REVIEW OF LABS, ECG & MEDICAL DATA No evidence of pulmonary embolism No evidence for aortic dissection Atherosclerotic disease and the vessels nonobstructive Distended gallbladder Twelve-lead EKG shows sinus rhythm 95 beats a minute normal ST segments narrow QRS normal DC interval Normal troponins 3 Past Medical History Past Medical History: No Reported History History of Any Multi-Drug Resistant Organisms: None Reported Past Surgical History: Orthopedic Surgery Past Anesthesia/Blood Transfusion Reactions: No Reported Reaction Past Psychological History: No Psychological Hx Reported Smoking Status: Current every day smoker Past Alcohol Use History: Abuse, Daily, Heavy Additional Past Alcohol Use History / Comment(s): ETOH abuse for last 35-40 years, pt states he stopped drinking 6 months ago and started back uo three days ago.. pt states he drinks anywhere from 2x 6 packs of beer to x2 fiths depending on his mood. Recently he states hes been drinking 1 fith per day. Past Drug Use History: None Reported Medications and Allergies Home Medications Medication Instructions Recorded Confirmed Type RX: Multivitamins, Thera 1 each PO DAILY 30 Days #30 tab 08/27/21 Rx [Multivitamin (formulary)] RX: Thiamine [Vitamin B-1] 100 mg PO BID-W/MEALS 30 Days #60 08/27/21 Rx tab RX: amLODIPine [Norvasc] 10 mg PO DAILY 30 Days #30 tab 08/27/21 Rx Allergies Allergy/AdvReac Type Severity Reaction Status Date / Time No Known Allergies Allergy Verified 08/26/21 18:39 Physical Exam Vitals: Vital Signs Temp Pulse Pulse Resp BP BP Pulse Ox 08/27/21 07:00 97.6 F 88 18 166/93 92 L 08/27/21 02:36 98.3 F 95 18 169/96 93 L 08/27/21 02:00 95 08/26/21 20:49 97.6 F 90 20 172/93 93 L 08/26/21 19:40 98 18 148/98 98 08/26/21 17:00 98.3 F 73 18 158/97 92 L Intake and Output 08/26/21 08/27/21 08/27/21 22:59 06:59 14:59 Other: # Voids 2 300 Weight 86.183 kg Results 08/27/21 06:23 Cardiac Enzymes 08/26/21 08/26/21 08/26/21 Range/Units 17:29 20:37 23:47 Troponin I <0.012 <0.012 <0.012 (0.000-0.034) ng/mL Current Medications Generic Name Dose Route Start Last Admin Trade Name Freq PRN Reason Stop Dose Admin Amlodipine Besylate 5 mg 08/27/21 09:00 Amlodipine 5 Mg Tab PO DAILY [facility] Aspirin 325 mg 08/27/21 09:00 Aspirin 325 Mg Tab PO DAILY [facility] Heparin Sodium (Porcine) 5,000 unit 08/27/21 08:00 Heparin Sodium,Porcine/Pf 5,000 Unit/0.5 Ml Syringe SQ Q8HR [facility] Sodium Chloride 1,000 mls @ 75 mls/hr 08/27/21 00:15 08/27/21 05:14 Saline 0.9% IV 75 mls/hr .[id number] [facility] Administration Lorazepam 1 mg 08/27/21 00:09 08/27/21 01:55 Lorazepam 2 Mg/Ml Inj IV 1 mg Q2HR PRN Administration CIWA 8 or 9 Lorazepam 1 mg 08/27/21 00:09 Lorazepam 2 Mg/Ml Inj IV Q1HR PRN CIWA 10 to 15 Lorazepam 2 mg 08/27/21 00:09 Lorazepam 2 Mg/Ml Inj IV 08/29/21 00:09 Q10M PRN CIWA 16 or higher Multivitamins 1 each 08/27/21 09:00 Multivitamins, Thera 1 Each Tab PO DAILY [facility] Nitroglycerin 0.4 mg 08/26/21 18:22 Nitroglycerin Sl Tabs 0.4 Mg Tab SUBLINGUAL Q5M PRN Chest Pain Nitroglycerin 1 inch 08/26/21 18:30 08/27/21 05:12 Nitroglycerin Oint 1 Inch/Gm Packet TOPICAL Not Given Q6HR [facility] Thiamine HCl 100 mg 08/27/21 17:30 Thiamine 100 Mg Tab PO BID-W/MEALS [facility] Intake and Output 08/26/21 08/27/21 08/27/21 22:59 06:59 14:59 Other: # Voids 2 300 Weight 86.183 kg
[2021-08-27] MEDS ORDERED: ATORVASTATIN 20 MG TAB PO SCH (21:00)
[2021-08-28] MEDS ORDERED: amLODIPine 10 MG TAB PO SCH (09:00)
[2021-08-28] MEDS ORDERED: ASPIRIN 81 MG PO SCH (09:00)
== END 2021-08-27 16:11 | disposition home or self-care (01) ==
LOC: EC 16:51 → 6NMEDSUR 18:23
PROVIDERS: ADMIT Internal Medicine; ATTEND Internal Medicine
DX: R07.89 Other chest pain (principal); F10.10 Alcohol abuse, uncomplicated; F17.210 Nicotine dependence, cigarettes, uncomplicated; I11.9 Hypertensive heart disease without heart failure; I71.9 Aortic aneurysm of unspecified site, without rupture; I71.00 Dissection of unspecified site of aorta; K57.90 Diverticulosis of intestine, part unspecified, without perforation or abscess without bleeding; I25.10 Atherosclerotic heart disease of native coronary artery without angina pectoris; I25.83 Coronary atherosclerosis due to lipid rich plaque; K82.8 Other specified diseases of gallbladder; Z79.899 Other long term (current) drug therapy; Z71.6 Tobacco abuse counseling; Z71.41 Alcohol abuse counseling and surveillance of alcoholic; E66.9 Obesity, unspecified; Z68.28 Body mass index [BMI] 28.0-28.9, adult; Z71.3 Dietary counseling and surveillance
CPT/HCPCS: 99285; 96372; 96375; 96374; 36415; 93005; 80061; 80048; 83735; 84484; 83036; 71275; 74174; G0378 ×2; C8929; J2060; J2270; J3411; Q9950; Q9967; J1644; 93306